=== PATIENT | male | born 1965 | race African-American/Black ===

== ENCOUNTER 2016-11-01 00:33 | Emergency (ER) | payer OTHER ==
[~2016-11-01] VITALS: Ht 172.7 cm; Wt 91.2 kg
[2016-11-01 01:05] LABS: ABSOLUTE NEUTROPHILS 7.3 thou/uL (1.4-8.2); BASOPHILS 0.7 % (0.0-2.0); EOSINOPHILS 2.8 % (0.0-3.0); HEMATOCRIT 37.8 % (42.0-52.0); HEMOGLOBIN 13.1 gm/dL (14.0-18.0); LYMPHOCYTES 22.8 % (24.0-44.0); MCH 34.9 pg (26.0-34.0); MCHC 34.7 g/dL (28.0-37.0); MCV 100.5 fL (80.0-100.0); MONOCYTES 7.5 % (1.0-8.0); PLATELET COUNT 111 thou/uL (150-400); POLYS 66.2 % (36.0-66.0); RBC 3.76 mil/uL (4.50-6.00); RDW 12.1 % (10.5-14.5); WBC 11.1 thou/uL (4.0-11.0)
[2016-11-01 01:06] LABS: MANUAL DIFF NO
[2016-11-01 01:27] LABS: ALBUMIN 3.9 g/dL (3.4-5.0); CALCIUM 8.8 mg/dL (8.5-10.1); CREATININE 1.4 mg/dL (0.7-1.3); DIRECT BILIRUBIN 0.1 mg/dL (<0.1-0.3); TOTAL BILIRUBIN 0.3 mg/dL (<0.1-1.0); TOTAL PROTEIN 7.7 g/dL (6.4-8.2)
[2016-11-01 01:30] LABS: POTASSIUM 2.6 mmol/L (3.5-5.1)
[2016-11-01 01:40] LABS: URINE BILIRUBIN NEGATIVE (Negative); URINE BLOOD TRACE (Negative); URINE COLOR YELLOW; URINE GLUCOSE-RANDOM* NEGATIVE (Negative); URINE KETONES NEGATIVE (Negative); URINE NITRITE NEGATIVE (Negative); URINE PROTEIN (DIPSTICK) 1+ (Negative); URINE UROBILINOGEN 0.2 E.U./dl (0.2-1.0)
[2016-11-01 02:09] LABS: BACTERIA None Seen /HPF (None Seen); CASTS None Seen /LPF (None Seen); CRYSTALS None Seen /LPF (None Seen); SQUAMOUS None Seen /LPF (0-3); URINE RBC 0-2 Rare /HPF (0-2); URINE WBC 0-5 Rare /HPF (0-5)
[2016-11-01] MEDS ORDERED: CARVEDILOL12.5 MG PO (02:14)
[2016-11-01] MEDS ORDERED: HYDROCHLOROTH12.5 M1 PO (02:14)
[2016-11-01] MEDS ORDERED: NORVASC10 MG PO (02:14)
[2016-11-01] MEDS ORDERED: LISINOPRIL10 MG PO (02:14)
[2016-11-01 05:07] VITALS: BP 177/91
== END 2016-11-01 05:10 | disposition short-term general hospital (02) ==
LOC: ER 00:33
PROVIDERS: Emergency Medicine
DX: I71.02 Dissection of abdominal aorta (principal); I16.0 Hypertensive urgency; E87.6 Hypokalemia; R19.7 Diarrhea, unspecified; I10 Essential (primary) hypertension

== ENCOUNTER 2017-06-16 10:20 | Emergency (ER) | payer OTHER ==
[~2017-06-16] VITALS: Ht 172.7 cm; Wt 90.7 kg
[~2017-06-16 10:20] MED LIST: CARVEDILOL12.5 MG PO; HYDROCHLOROTH12.5 M1 PO; LISINOPRIL10 MG PO; NORVASC10 MG PO
[2017-06-16] MEDS ORDERED: NORVASC10 MG PO (10:53)
[2017-06-16] MEDS ORDERED: CATAPRES0.2 MG PO (10:53)
[2017-06-16 10:54] LABS: ABSOLUTE NEUTROPHILS 3.2 thou/uL (1.4-8.2); BASOPHILS 0.6 % (0.0-2.0); EOSINOPHILS 3.2 % (0.0-3.0); HEMATOCRIT 34.3 % (42.0-52.0); LYMPHOCYTES 26.4 % (24.0-44.0); MCH 33.6 pg (26.0-34.0); MCHC 34.9 g/dL (28.0-37.0); MCV 96.2 fL (80.0-100.0); PLATELET COUNT 189 thou/uL (150-400); POLYS 62.8 % (36.0-66.0); RBC 3.56 mil/uL (4.50-6.00); RDW 12.4 % (10.5-14.5); WBC 5.1 thou/uL (4.0-11.0)
[2017-06-16 11:13] LABS: CALCIUM 9.2 mg/dL (8.5-10.1); CREATININE 1.4 mg/dL (0.7-1.3); POTASSIUM 3.8 mmol/L (3.5-5.1)
[2017-06-16 11:38] LABS: ABSOLUTE RETIC COUNT 0.06 10^6/uL; OBSERVED RETIC COUNT 1.68 % (0.6-2.6)
== END 2017-06-16 14:00 | disposition home or self-care (01) ==
LOC: ER 10:20
PROVIDERS: Emergency Medicine
DX: N48.30 Priapism, unspecified (principal); I10 Essential (primary) hypertension; F10.99 Alcohol use, unspecified with unspecified alcohol-induced disorder

== ENCOUNTER 2018-02-12 05:12 | Emergency (ER) | payer OTHER ==
[~2018-02-12] VITALS: Ht 172.7 cm; Wt 86.2 kg
[~2018-02-12 05:12] MED LIST changes: +CATAPRES0.2 MG PO
[2018-02-12] MEDS ORDERED: TRAMADOL 50 MG50 MG PO (06:11)
[2018-02-12] MEDS ORDERED: NAPROSYN500 MG PO (06:11)
== END 2018-02-12 06:22 | disposition home or self-care (01) ==
LOC: ER 05:12
DX: N48.30 Priapism, unspecified (principal); I10 Essential (primary) hypertension

== ENCOUNTER 2020-06-07 11:02 | Emergency (ER) | payer OTHER ==
[~2020-06-07] VITALS: Ht 172.7 cm; Wt 90.7 kg
[~2020-06-07 11:02] MED LIST changes: +NAPROSYN500 MG PO; +TRAMADOL 50 MG50 MG PO
[2020-06-07 13:44] VITALS: BP 152/104
== END 2020-06-07 13:42 | disposition home or self-care (01) ==
LOC: ER 11:02
DX: N48.30 Priapism, unspecified (principal); I10 Essential (primary) hypertension; Z79.899 Other long term (current) drug therapy